=== PATIENT | female | born 1995 | race Caucasian/White ===

== ENCOUNTER 2019-06-23 13:22 | Emergency (ER) | payer BC ==
[~2019-06-23] VITALS: Ht 172.7 cm; Wt 61.2 kg
[2019-06-23 14:17] LABS: *URINE HCG, QUAL NEGATIVE (NEGATIVE)
--- NOTE | 2019-06-23 14:40 | NUR ---
Patient discharged to home in stable conditon. Written and verbal after care instructions given. Patient verbalizes understanding of instructions.PT WALKS IN STEADY GAIT. PT ACCOMPANIED BY FATHER.
[2019-06-23 14:41] VITALS: BP 108/80
== END 2019-06-23 14:45 | disposition home or self-care (01) ==
LOC: ER 13:22
DX: J06.9 Acute upper respiratory infection, unspecified (principal)
CPT/HCPCS: 71046; 84703; A4663